=== PATIENT | female | born 1965 | race Hispanic/Latino ===

== ENCOUNTER 2021-04-11 07:37 | Outpatient (CLI) | payer OTHER | END 2021-04-11 07:38 | disposition home or self-care (01) | LOC: CSHCT 07:37 | PROVIDERS: ATTEND Urology | DX: N12 Tubulo-interstitial nephritis, not specified as acute or chronic (principal); N28.9 Disorder of kidney and ureter, unspecified; N13.30 Unspecified hydronephrosis; J90 Pleural effusion, not elsewhere classified; R18.8 Other ascites | CPT/HCPCS: 74176 ==

== ENCOUNTER 2021-08-03 09:23 | Outpatient (CLI) | payer OTHER | END 2021-08-03 09:24 | disposition home or self-care (01) | LOC: CSHCT 09:23 | PROVIDERS: ATTEND Urology | DX: N18.6 End stage renal disease (principal); N28.89 Other specified disorders of kidney and ureter; Z90.5 Acquired absence of kidney; K82.9 Disease of gallbladder, unspecified; R60.1 Generalized edema; I31.3 Pericardial effusion (noninflammatory); R91.1 Solitary pulmonary nodule; K63.9 Disease of intestine, unspecified | CPT/HCPCS: 74178 ==

== ENCOUNTER 2021-08-06 20:46 | Inpatient (IN) | payer SELFPAY ==
[2021-08-06] MEDS ORDERED: Ondansetron PF 4 MG/2 ML Vial ONE (22:33)
[2021-08-06] MEDS ORDERED: Morphine 2 MG/ML VIAL ONE (22:33)
[2021-08-06 22:34] LABS: Bilirubin Neg (Negative); Blood, Urine 150 (Negative); Clarity Clear (Clear); Glucose, Urine (Dipstick) 50 mg/dL (Negative); Ketone, Urine Negative (Negative); Leukocyte 500 (Negative); Nitrite Negative (Negative); Protein, Urine (Dipstick) 100 mg/dl (Neg-Trace); Urobilinogen Normal mg/dL (Less than 2)
[2021-08-06 22:38] LABS: #Eosinphils 0.2 10x3/uL (0.0-0.5); #Monocytes 0.6 10x3/uL (0.0-1.1); #Neutrophils 4.4 10x3/uL (1.5-8.4); %Basophils 0.4 % (0.0-2.0); %Eosinophils 2.3 % (0.0-6.0); %Lymphocytes 28.8 % (18.0-47.0); %Monocytes 8.5 % (0.0-10.0); %Neutrophils 59.7 % (40.0-75.0); Hemoglobin 10.1 g/dL (12.0-15.5); Mean Corpuscular HGB CONC 34.9 g/dL (32.0-36.0); Mean Corpuscular Hemoglobin 27.7 pg (27.0-33.0); Mean Corpuscular Volume 79.2 fl (81.6-98.3); Platelet Count 255 10x3/uL (150-450); RBC Distribution Width 14.4 % (11.5-14.5); Red Blood Cell (RBC) Count 3.65 10x6/uL (3.90-5.03); White Blood Cell (WBC) Count 7.4 10x3/uL (3.5-10.5)
[2021-08-06 22:48] LABS: ALT (SGPT) 18 U/L (8-55); AST (SGOT) 13 U/L (5-34); Albumin 4.3 g/dL (3.5-5.0); Alkaline Phosphatase 68 U/L (40-110); Anion Gap 19 mmol/L (10-20); BUN (Urea Nitrogen) 35 mg/dL (9.8-20.1); Bilirubin, Total 0.5 mg/dL (0.2-1.2); Calc. Creatinine Clearance 0 mL/min (70-130); Calcium 9.5 mg/dL (7.8-10.44); Carbon Dioxide 23 mmol/L (22-29); Chloride 86 mmol/L (98-107); Globulin 4.2 g/dL (2.4-3.5); Glucose 149 mg/dL (70-105); Lipase 35 U/L (8-78); Protein, Total 8.5 g/dL (6.0-8.3); Sodium 123 mmol/L (136-145)
[2021-08-06 22:56] LABS: Bacteria/HPF 1+ HPF (None Seen); Transitional Epithelial 0-3 HPF (None Seen); WBC/HPF Greater Than 50 HPF (0-3)
[2021-08-07] MEDS ORDERED: HumaLOG 300 UNITS/3 ML VIAL SC PRN ×2 (00:28)
[2021-08-07] MEDS ORDERED: Acetaminophen 325 MG TAB PO PRN (00:28)
[2021-08-07] MEDS ORDERED: Dextrose 5% in Water 1,000 ML IV PRN (00:28)
[2021-08-07] MEDS ORDERED: Zolpidem Tartrate 5 MG TAB PO PRN (00:28)
[2021-08-07] MEDS ORDERED: Dextrose 50% Abboject 50 ML SYRINGE SLOW IVP PRN (00:28)
[2021-08-07] MEDS ORDERED: Bisacodyl 5 MG TAB PO PRN (00:28)
[2021-08-07] MEDS ORDERED: cefTRIAXone\\ROCEPHIN 2 GM VIAL ONE (00:32)
[2021-08-07] MEDS ORDERED: hydrALAZINE 20 MG/ML VIAL SLOW IVP PRN (00:49)
[2021-08-07 02:36] VITALS: BMI 22.6
[2021-08-07] MEDS ORDERED: Loratadine 10 MG TAB PO PRN (02:36)
[2021-08-07] MEDS: Heparin 5,000 UNITS/ML VIAL SC SCH ×2 (02:56→15:29)
[2021-08-07] MEDS ORDERED: Furosemide 40 MG/4 ML VIAL SLOW IVP SCH ×2 (03:00→09:00)
[2021-08-07] MEDS ORDERED: Levofloxacin 500 mg/D5W 250 MG in Premix Bag 1 BAG IVPB SCH (03:00)
[2021-08-07] MEDS: HYDROcodone/Acetaminophen 5/325 mg Tablet PO PRN ×2 (03:30→22:03)
[2021-08-07 05:30] LABS: #Eosinphils 0.2 10x3/uL (0.0-0.5); #Monocytes 0.7 10x3/uL (0.0-1.1); #Neutrophils 4.8 10x3/uL (1.5-8.4); %Basophils 0.3 % (0.0-2.0); %Eosinophils 2.4 % (0.0-6.0); %Lymphocytes 22.6 % (18.0-47.0); %Monocytes 9.9 % (0.0-10.0); %Neutrophils 64.5 % (40.0-75.0); Hemoglobin 8.3 g/dL (12.0-15.5); Mean Corpuscular HGB CONC 34.2 g/dL (32.0-36.0); Mean Corpuscular Hemoglobin 27.3 pg (27.0-33.0); Mean Corpuscular Volume 79.9 fl (81.6-98.3); Mean Platelet Volume 7.9 fl (7.4-10.4); Platelet Count 204 10x3/uL (150-450); RBC Distribution Width 14.3 % (11.5-14.5); Red Blood Cell (RBC) Count 3.04 10x6/uL (3.90-5.03); White Blood Cell (WBC) Count 7.4 10x3/uL (3.5-10.5)
[2021-08-07 05:44] LABS: Albumin 3.2 g/dL (3.5-5.0); Anion Gap 17 mmol/L (10-20); BUN (Urea Nitrogen) 35 mg/dL (9.8-20.1); Calc. Creatinine Clearance 15 mL/min (70-130); Calcium 8.3 mg/dL (7.8-10.44); Carbon Dioxide 24 mmol/L (22-29); Chloride 89 mmol/L (98-107); Glucose 109 mg/dL (70-105); Phosphorus 3.5 mg/dL (2.3-4.7); Potassium 5.2 mmol/L (3.5-5.1); Sodium 125 mmol/L (136-145)
[2021-08-07] MEDS: metroNIDAZOLE 500 MG in Premix Bag 1 BAG IVPB SCH ×3 (06:15→21:58)
[2021-08-07] MEDS: Morphine 2 MG/ML VIAL SLOW IVP PRN ×2 (08:48→15:33)
[2021-08-07] MEDS ORDERED: Heparin 10,000 UNITS/ 10 ML VIAL FS PRN (11:05)
[2021-08-07] MEDS ORDERED: EPOETIN ALFA-EPBX (ESRD) 3,000 UNIT/ML VIAL IVP PRN (11:06)
[2021-08-07] MEDS: Lantus 1000 UNITS/10 ML VIAL SC SCH ×2 (15:27→22:03)
[2021-08-07] MEDS: glipiZIDE 5 MG TAB PO SCH (15:27)
[2021-08-07] MEDS: Aspirin 81 mg Enteric Coated Tablet PO SCH (15:28)
[2021-08-07] MEDS: Famotidine 20 MG TAB PO SCH (15:28)
[2021-08-07] MEDS: Amlodipine 5 MG TAB PO SCH (15:28)
[2021-08-07] MEDS: Rosuvastatin 10 MG TAB PO SCH (21:58)
[2021-08-08] MEDS: Heparin 5,000 UNITS/ML VIAL SC SCH ×2 (04:05→15:03)
[2021-08-08 05:42] LABS: #Eosinphils 0.1 10x3/uL (0.0-0.5); #Monocytes 0.6 10x3/uL (0.0-1.1); #Neutrophils 3.5 10x3/uL (1.5-8.4); %Basophils 0.4 % (0.0-2.0); %Lymphocytes 14.2 % (18.0-47.0); %Monocytes 11.9 % (0.0-10.0); %Neutrophils 72.3 % (40.0-75.0); Hemoglobin 9.3 g/dL (12.0-15.5); Mean Corpuscular HGB CONC 34.1 g/dL (32.0-36.0); Mean Corpuscular Hemoglobin 27.7 pg (27.0-33.0); Mean Corpuscular Volume 81.3 fl (81.6-98.3); Mean Platelet Volume 8.1 fl (7.4-10.4); Platelet Count 208 10x3/uL (150-450); RBC Distribution Width 14.5 % (11.5-14.5); Red Blood Cell (RBC) Count 3.36 10x6/uL (3.90-5.03); White Blood Cell (WBC) Count 4.9 10x3/uL (3.5-10.5)
[2021-08-08] MEDS: metroNIDAZOLE 500 MG in Premix Bag 1 BAG IVPB SCH ×3 (05:44→21:39)
[2021-08-08 05:53] LABS: Anion Gap 14 mmol/L (10-20); BUN (Urea Nitrogen) 15 mg/dL (9.8-20.1); Calc. Creatinine Clearance 23 mL/min (70-130); Calcium 8.6 mg/dL (7.8-10.44); Carbon Dioxide 27 mmol/L (22-29); Chloride 99 mmol/L (98-107); Glucose 60 mg/dL (70-105); Potassium 3.5 mmol/L (3.5-5.1); Sodium 136 mmol/L (136-145)
[2021-08-08] MEDS: Aspirin 81 mg Enteric Coated Tablet PO SCH (09:56)
[2021-08-08] MEDS: glipiZIDE 5 MG TAB PO SCH (09:56)
[2021-08-08] MEDS: Famotidine 20 MG TAB PO SCH (09:57)
[2021-08-08] MEDS: Lantus 1000 UNITS/10 ML VIAL SC SCH (09:57)
[2021-08-08] MEDS: Amlodipine 5 MG TAB PO SCH (09:57)
[2021-08-08] MEDS: Rosuvastatin 10 MG TAB PO SCH (20:52)
[2021-08-08] MEDS: Ondansetron PF 4 MG/2 ML Vial IVP PRN (23:08)
[2021-08-08] MEDS: Morphine 2 MG/ML VIAL SLOW IVP PRN (23:09)
[2021-08-09] MEDS: Lantus 1000 UNITS/10 ML VIAL SC SCH (03:38)
[2021-08-09] MEDS: Heparin 5,000 UNITS/ML VIAL SC SCH (03:44)
[2021-08-09] MEDS: metroNIDAZOLE 500 MG in Premix Bag 1 BAG IVPB SCH (05:02)
[2021-08-09 05:27] LABS: #Eosinphils 0.2 10x3/uL (0.0-0.5); #Monocytes 0.6 10x3/uL (0.0-1.1); #Neutrophils 3.5 10x3/uL (1.5-8.4); %Basophils 0.3 % (0.0-2.0); %Eosinophils 2.9 % (0.0-6.0); %Lymphocytes 25.8 % (18.0-47.0); %Monocytes 10.9 % (0.0-10.0); %Neutrophils 59.8 % (40.0-75.0); Hemoglobin 8.8 g/dL (12.0-15.5); Mean Corpuscular HGB CONC 33.6 g/dL (32.0-36.0); Mean Corpuscular Hemoglobin 27.4 pg (27.0-33.0); Mean Corpuscular Volume 81.6 fl (81.6-98.3); Mean Platelet Volume 8.1 fl (7.4-10.4); Platelet Count 214 10x3/uL (150-450); RBC Distribution Width 14.6 % (11.5-14.5); Red Blood Cell (RBC) Count 3.21 10x6/uL (3.90-5.03); White Blood Cell (WBC) Count 5.8 10x3/uL (3.5-10.5)
[2021-08-09 05:59] LABS: Anion Gap 14 mmol/L (10-20); BUN (Urea Nitrogen) 26 mg/dL (9.8-20.1); Calc. Creatinine Clearance 16 mL/min (70-130); Calcium 8.5 mg/dL (7.8-10.44); Carbon Dioxide 26 mmol/L (22-29); Chloride 101 mmol/L (98-107); Glucose 68 mg/dL (70-105); Sodium 137 mmol/L (136-145)
[2021-08-09] MEDS: Amlodipine 5 MG TAB PO SCH (09:36)
[2021-08-09] MEDS: Aspirin 81 mg Enteric Coated Tablet PO SCH (09:36)
[2021-08-09] MEDS: Famotidine 20 MG TAB PO SCH (09:36)
[2021-08-09] MEDS: Ondansetron PF 4 MG/2 ML Vial IVP PRN (09:40)
[2021-08-09] MEDS: glipiZIDE 5 MG TAB PO SCH (10:13)
[2021-08-09 12:19] VITALS: BP 167/87; TEMP 97.9
== END 2021-08-09 16:09 | disposition home or self-care (01) | DRG 391 ==
LOC: CSHERS 20:46 → CSHTELE 08-07 02:22 → OBSVTOIN 08-07 02:23
PROVIDERS: ADMIT Internal Medicine; ATTEND Internal Medicine
PROC: 5A1D70Z Performance of Urinary Filtration, Intermittent, Less than 6 Hours Per Day (ICD-10-PCS; principal; 2021-08-07)
DX: K52.9 Noninfective gastroenteritis and colitis, unspecified (principal); N18.6 End stage renal disease; N39.0 Urinary tract infection, site not specified; E87.1 Hypo-osmolality and hyponatremia; I12.0 Hypertensive chronic kidney disease with stage 5 chronic kidney disease or end stage renal disease; Z20.822 Contact with and (suspected) exposure to COVID-19; N28.89 Other specified disorders of kidney and ureter; E87.5 Hyperkalemia; D63.1 Anemia in chronic kidney disease; K80.20 Calculus of gallbladder without cholecystitis without obstruction; E11.22 Type 2 diabetes mellitus with diabetic chronic kidney disease; Z79.82 Long term (current) use of aspirin; Z99.2 Dependence on renal dialysis; Z90.5 Acquired absence of kidney; Z90.49 Acquired absence of other specified parts of digestive tract; Z79.899 Other long term (current) drug therapy
CPT/HCPCS: 36415; 36416; 76705; 80048; 80053; 80069; 81003; 81015; 83605; 83690; 83930; 83935; 85025; 90935; 93005; 94760; 96374; 96375; G0257; J0696; J1644; J1815; J1940; J1956; J2270; J2405; J7999; U0003; U0005

== ENCOUNTER 2021-08-10 05:36 | Emergency (ER) | payer MEDICAID ==
[2021-08-10] MEDS ORDERED: Morphine 4 MG/ML VIAL ONE (06:44)
[2021-08-10] MEDS ORDERED: Ondansetron PF 4 MG/2 ML Vial ONE (06:45)
[2021-08-10] MEDS ORDERED: Ketorolac Tromethamine 30 MG/ML VIAL ONE (06:45)
[2021-08-10 06:54] LABS: #Eosinphils 0.2 10x3/uL (0.0-0.5); #Monocytes 0.6 10x3/uL (0.0-1.1); #Neutrophils 4.3 10x3/uL (1.5-8.4); %Basophils 0.4 % (0.0-2.0); %Eosinophils 2.6 % (0.0-6.0); %Lymphocytes 24.3 % (18.0-47.0); %Monocytes 8.9 % (0.0-10.0); %Neutrophils 63.5 % (40.0-75.0); Hemoglobin 9.8 g/dL (12.0-15.5); Mean Corpuscular HGB CONC 33.2 g/dL (32.0-36.0); Mean Corpuscular Hemoglobin 27.8 pg (27.0-33.0); Mean Corpuscular Volume 83.8 fl (81.6-98.3); Mean Platelet Volume 8.2 fl (7.4-10.4); Platelet Count 252 10x3/uL (150-450); RBC Distribution Width 14.9 % (11.5-14.5); Red Blood Cell (RBC) Count 3.52 10x6/uL (3.90-5.03); White Blood Cell (WBC) Count 6.8 10x3/uL (3.5-10.5)
[2021-08-10 07:12] LABS: ALT (SGPT) 11 U/L (8-55); AST (SGOT) 9 U/L (5-34); Albumin 3.8 g/dL (3.5-5.0); Alkaline Phosphatase 62 U/L (40-110); Anion Gap 19 mmol/L (10-20); BUN (Urea Nitrogen) 32 mg/dL (9.8-20.1); Bilirubin, Total 0.5 mg/dL (0.2-1.2); Calc. Creatinine Clearance 0 mL/min (70-130); Calcium 9.1 mg/dL (7.8-10.44); Carbon Dioxide 20 mmol/L (22-29); Chloride 99 mmol/L (98-107); Globulin 3.6 g/dL (2.4-3.5); Glucose 117 mg/dL (70-105); Lipase 36 U/L (8-78); Potassium 4.2 mmol/L (3.5-5.1); Protein, Total 7.4 g/dL (6.0-8.3); Sodium 134 mmol/L (136-145)
== END 2021-08-10 08:07 | disposition home or self-care (01) ==
LOC: CSHERS 05:36
DX: R10.9 Unspecified abdominal pain (principal); R11.2 Nausea with vomiting, unspecified; E11.22 Type 2 diabetes mellitus with diabetic chronic kidney disease; I12.0 Hypertensive chronic kidney disease with stage 5 chronic kidney disease or end stage renal disease; N18.6 End stage renal disease; Z99.2 Dependence on renal dialysis; Z79.899 Other long term (current) drug therapy; Z79.84 Long term (current) use of oral hypoglycemic drugs; Z79.82 Long term (current) use of aspirin
CPT/HCPCS: 80053; 83605; 83690; 85025; 96374; 96375; J1885; J2270; J2405

== ENCOUNTER 2021-08-14 14:50 | Inpatient (IN) | payer SELFPAY ==
[2021-08-14] MEDS ORDERED: Ondansetron PF 4 MG/2 ML Vial ONE (16:06)
[2021-08-14] MEDS ORDERED: Morphine 4 MG/ML VIAL ONE (16:06)
[2021-08-14 16:09] LABS: Bilirubin Neg (Negative); Blood, Urine 150 (Negative); Clarity Slightly Cloudy (Clear); Glucose, Urine (Dipstick) 100 mg/dL (Negative); Ketone, Urine Negative (Negative); Leukocyte 500 (Negative); Nitrite Negative (Negative); Protein, Urine (Dipstick) 100 mg/dl (Neg-Trace); Specific Gravity, Urine 1.005 (1.002-1.036); Urobilinogen Normal mg/dL (Less than 2)
[2021-08-14 16:38] LABS: #Eosinphils 0.2 10x3/uL (0.0-0.5); #Monocytes 0.5 10x3/uL (0.0-1.1); #Neutrophils 3.6 10x3/uL (1.5-8.4); %Basophils 0.4 % (0.0-2.0); %Eosinophils 2.7 % (0.0-6.0); %Lymphocytes 23.5 % (18.0-47.0); %Monocytes 9.6 % (0.0-10.0); %Neutrophils 63.4 % (40.0-75.0); Hemoglobin 9.5 g/dL (12.0-15.5); Mean Corpuscular HGB CONC 33.3 g/dL (32.0-36.0); Mean Corpuscular Hemoglobin 27.9 pg (27.0-33.0); Mean Corpuscular Volume 83.6 fl (81.6-98.3); Mean Platelet Volume 8.1 fl (7.4-10.4); Platelet Count 281 10x3/uL (150-450); Red Blood Cell (RBC) Count 3.41 10x6/uL (3.90-5.03); White Blood Cell (WBC) Count 5.7 10x3/uL (3.5-10.5)
[2021-08-14 16:42] LABS: Squamous Epithelial 0-3 HPF (0-3); Transitional Epithelial 0-3 HPF (None Seen); WBC/HPF 21-50 HPF (0-3)
[2021-08-14 16:44] LABS: Bacteria/HPF 2+ HPF (None Seen); Mucous/LPF Rare LPF (<2+)
[2021-08-14 16:45] LABS: ALT (SGPT) 19 U/L (8-55); AST (SGOT) 15 U/L (5-34); Albumin 3.9 g/dL (3.5-5.0); Alkaline Phosphatase 81 U/L (40-110); Anion Gap 20 mmol/L (10-20); BUN (Urea Nitrogen) 65 mg/dL (9.8-20.1); Bilirubin, Total 0.4 mg/dL (0.2-1.2); Calc. Creatinine Clearance 0 mL/min (70-130); Carbon Dioxide 20 mmol/L (22-29); Chloride 98 mmol/L (98-107); Globulin 4.1 g/dL (2.4-3.5); Glucose 226 mg/dL (70-105); Lipase 33 U/L (8-78); Sodium 131 mmol/L (136-145)
[2021-08-14 16:47] LABS: Potassium 6.9 mmol/L (3.5-5.1)
[2021-08-14] MEDS ORDERED: Guaifenesin DM 100-10/5 ML UDCUP PO PRN (18:17)
[2021-08-14] MEDS ORDERED: Acetaminophen 325 MG TAB PO PRN (18:17)
[2021-08-14] MEDS ORDERED: Ondansetron ODT 4 MG TAB PO PRN (18:17)
[2021-08-14] MEDS ORDERED: Dextrose 50% Abboject 50 ML SYRINGE SLOW IVP PRN (18:21)
[2021-08-14] MEDS ORDERED: Dextrose 5% in Water 1,000 ML IV PRN (18:21)
[2021-08-14] MEDS ORDERED: Calcium Chloride 1 GM/10 ML Abboject SYRINGE ONE (18:37)
[2021-08-14] MEDS ORDERED: Sodium Bicarb 50 MEQ/50 ML VIAL ONE ×3 (18:37→18:38)
[2021-08-14] MEDS ORDERED: Dextrose 50% Abboject 50 ML SYRINGE ONE (18:38)
[2021-08-14] MEDS ORDERED: Insulin Regular 300 UNITS/3 ML VIAL ONE (18:39)
[2021-08-14] MEDS ORDERED: Albuterol Sulfate 2.5 mg/3 ml Neb ONE (19:39)
[2021-08-14] MEDS ORDERED: EPOETIN ALFA-EPBX (ESRD) 10,000 UNIT/ML VIAL IVP PRN (19:50)
[2021-08-14 20:24] LABS: HBSAg Index 0.22 S/CO (0-0.99); Hep B Surf Ag Non-Reactive S/CO (NonReactive)
[2021-08-14 20:33] LABS: Anion Gap 19 mmol/L (10-20); BUN (Urea Nitrogen) 65 mg/dL (9.8-20.1); BUN/Creatinine Ratio 12.52; Calc. Creatinine Clearance 0 mL/min (70-130); Calcium 9.2 mg/dL (7.8-10.44); Carbon Dioxide 20 mmol/L (22-29); Chloride 96 mmol/L (98-107); Glucose 223 mg/dL (70-105); Phosphorus 5.2 mg/dL (2.3-4.7); Sodium 128 mmol/L (136-145)
[2021-08-14 20:40] LABS: Potassium 6.9 mmol/L (3.5-5.1)
[2021-08-14] MEDS ORDERED: Lantus 1000 UNITS/10 ML VIAL SC SCH (21:00)
[2021-08-15] MEDS: Famotidine 20 MG TAB PO SCH ×2 (00:43→21:08)
[2021-08-15 01:30] VITALS: BMI 18.6
[2021-08-15] MEDS ORDERED: Prevnar 13-Val Conj/PF 0.5 ML SYRINGE IM ONE (02:00)
[2021-08-15] MEDS: HYDROcodone/Acetaminophen 5/325 mg Tablet PO PRN ×4 (03:55→18:05)
[2021-08-15 04:13] LABS: SARS-CoV-2 NAA Rapid Test Not Detected (NotDetected)
[2021-08-15 05:24] LABS: #Eosinphils 0.1 10x3/uL (0.0-0.5); #Monocytes 0.5 10x3/uL (0.0-1.1); #Neutrophils 3.8 10x3/uL (1.5-8.4); %Basophils 0.6 % (0.0-2.0); %Eosinophils 1.3 % (0.0-6.0); %Lymphocytes 17.6 % (18.0-47.0); %Monocytes 9.5 % (0.0-10.0); %Neutrophils 70.4 % (40.0-75.0); Hemoglobin 8.1 g/dL (12.0-15.5); Mean Corpuscular HGB CONC 32.4 g/dL (32.0-36.0); Mean Corpuscular Hemoglobin 27.1 pg (27.0-33.0); Mean Corpuscular Volume 83.6 fl (81.6-98.3); Mean Platelet Volume 8.2 fl (7.4-10.4); Platelet Count 271 10x3/uL (150-450); RBC Distribution Width 14.6 % (11.5-14.5); Red Blood Cell (RBC) Count 2.99 10x6/uL (3.90-5.03); White Blood Cell (WBC) Count 5.4 10x3/uL (3.5-10.5)
[2021-08-15 05:49] LABS: Anion Gap 16 mmol/L (10-20); BUN (Urea Nitrogen) 23 mg/dL (9.8-20.1); Calc. Creatinine Clearance 20 mL/min (70-130); Calcium 8.7 mg/dL (7.8-10.44); Carbon Dioxide 27 mmol/L (22-29); Chloride 99 mmol/L (98-107); Glucose 236 mg/dL (70-105); Potassium 4.9 mmol/L (3.5-5.1); Sodium 137 mmol/L (136-145)
[2021-08-15] MEDS: Insulin Regular 300 UNITS/3 ML VIAL SC PRN ×3 (05:52→16:20)
[2021-08-15] MEDS ORDERED: Bisacodyl 10 MG SUPP PR PRN (06:53)
[2021-08-15] MEDS ORDERED: glipiZIDE 5 MG TAB PO SCH (07:30)
[2021-08-15] MEDS ORDERED: Enoxaparin Sodium 30 MG/0.3 ML SYRINGE SC SCH (09:00)
[2021-08-15] MEDS: Amlodipine 5 MG TAB PO SCH (09:52)
[2021-08-15] MEDS: Docusate 100 MG CAP PO SCH ×2 (09:53→21:08)
[2021-08-15] MEDS: Aspirin 81 mg Enteric Coated Tablet PO SCH (09:53)
[2021-08-15] MEDS: Heparin 5,000 UNITS/ML VIAL SC SCH ×3 (09:54→21:05)
[2021-08-15] MEDS: Methocarbamol 500 MG TAB PO SCH ×3 (09:54→21:07)
[2021-08-15] MEDS ORDERED: Morphine 2 MG/ML VIAL SLOW IVP PRN (10:13)
[2021-08-15] MEDS ORDERED: Lantus 1000 UNITS/10 ML VIAL SC SCH ×3 (10:13→21:00)
[2021-08-15] MEDS ORDERED: hydrALAZINE 20 MG/ML VIAL SLOW IVP PRN (10:15)
[2021-08-15] MEDS ORDERED: Artificial Tear Sol 15 ML BOT EA EYE PRN (10:15)
[2021-08-15] MEDS ORDERED: Senokot S 8.6-50 MG TAB PO PRN (10:15)
[2021-08-15] MEDS ORDERED: Moisturizing Cream (Eucerin) 113 GM JAR TOP PRN (10:15)
[2021-08-15] MEDS ORDERED: Labetalol HCl 100 MG/20 ML VIAL SLOW IVP PRN (10:15)
[2021-08-15] MEDS ORDERED: Polyethylene Glycol 3350 17 GM Packet PO SCH (10:30)
[2021-08-15] MEDS ORDERED: Cefepime 1 GM in Sodium Chloride 0.9% 100 ML IVPB SCH (10:30)
[2021-08-15 14:46] LABS: Hemoglobin A1c 6.6 % (4.0-6.0)
[2021-08-15 15:55] LABS: Bilirubin Neg (Negative); Blood, Urine 150 (Negative); Clarity Slightly Cloudy (Clear); Glucose, Urine (Dipstick) 250 mg/dL (Negative); Ketone, Urine Negative (Negative); Leukocyte 500 (Negative); Nitrite Negative (Negative); Protein, Urine (Dipstick) 100 mg/dl (Neg-Trace); Urobilinogen Normal mg/dL (Less than 2)
[2021-08-15 16:13] LABS: WBC/HPF 21-50 HPF (0-3)
[2021-08-15 16:14] LABS: Bacteria/HPF 2+ HPF (None Seen); Mucous/LPF Rare LPF (<2+); Squamous Epithelial 0-3 HPF (0-3)
[2021-08-15] MEDS: DULoxetine 30 MG CAP PO SCH (21:07)
[2021-08-15] MEDS: Rosuvastatin 10 MG TAB PO SCH (21:09)
[2021-08-15] MEDS: Estrogens, Conjugated 30 GM TUBE VAG SCH (21:16)
[2021-08-16] MEDS: HYDROcodone/Acetaminophen 5/325 mg Tablet PO PRN ×5 (04:40→20:46)
[2021-08-16] MEDS: Ondansetron PF 4 MG/2 ML Vial IVP PRN ×2 (04:51→20:46)
[2021-08-16 05:29] LABS: #Eosinphils 0.1 10x3/uL (0.0-0.5); #Monocytes 0.5 10x3/uL (0.0-1.1); #Neutrophils 2.8 10x3/uL (1.5-8.4); %Basophils 0.9 % (0.0-2.0); %Eosinophils 3.1 % (0.0-6.0); %Lymphocytes 22.5 % (18.0-47.0); %Monocytes 11.5 % (0.0-10.0); %Neutrophils 61.6 % (40.0-75.0); Hemoglobin 9.3 g/dL (12.0-15.5); Mean Corpuscular HGB CONC 32.4 g/dL (32.0-36.0); Mean Corpuscular Hemoglobin 27.7 pg (27.0-33.0); Mean Corpuscular Volume 85.4 fl (81.6-98.3); Mean Platelet Volume 8.2 fl (7.4-10.4); Platelet Count 351 10x3/uL (150-450); RBC Distribution Width 14.8 % (11.5-14.5); Red Blood Cell (RBC) Count 3.36 10x6/uL (3.90-5.03); White Blood Cell (WBC) Count 4.5 10x3/uL (3.5-10.5)
[2021-08-16 05:35] LABS: Anion Gap 18 mmol/L (10-20); BUN (Urea Nitrogen) 28 mg/dL (9.8-20.1); Calc. Creatinine Clearance 15 mL/min (70-130); Carbon Dioxide 23 mmol/L (22-29); Chloride 102 mmol/L (98-107); Glucose 137 mg/dL (70-105); Potassium 6.1 mmol/L (3.5-5.1); Sodium 137 mmol/L (136-145)
[2021-08-16] MEDS: Polyethylene Glycol 3350 17 GM Packet PO SCH (09:33)
[2021-08-16] MEDS: Amlodipine 5 MG TAB PO SCH (09:34)
[2021-08-16] MEDS: Docusate 100 MG CAP PO SCH ×2 (09:35→20:48)
[2021-08-16] MEDS: Aspirin 81 mg Enteric Coated Tablet PO SCH (09:35)
[2021-08-16] MEDS: Methocarbamol 500 MG TAB PO SCH ×3 (09:35→20:47)
[2021-08-16] MEDS ORDERED: Morphine 2 MG/ML VIAL SLOW IVP PRN (09:36)
[2021-08-16] MEDS ORDERED: Lantus 1000 UNITS/10 ML VIAL SC SCH (09:42)
[2021-08-16] MEDS ORDERED: EPOETIN ALFA-EPBX (ESRD) 40,000 UNIT/ML VIAL SC SCH (09:45)
[2021-08-16] MEDS: Lactated Ringer's 1,000 ML IV SCH (09:48)
[2021-08-16] MEDS: Heparin 5,000 UNITS/ML VIAL SC SCH ×3 (10:08→20:48)
[2021-08-16] MEDS ORDERED: Heparin 10,000 UNITS/ 10 ML VIAL FS PRN (10:26)
[2021-08-16] MEDS ORDERED: Cefepime 0.5 GM in Admixture Fee 1 EACH IVPB SCH (10:45)
[2021-08-16] MEDS ORDERED: Cefepime 0.5 GM, Admixture Fee 1 EACH in Sodium Chloride 0.9% 50 ML IVPB SCH (17:30)
[2021-08-16] MEDS ORDERED: Cefepime 0.5 GM, Admixture Fee 1 EACH in Sodium Chloride 0.9% 100 ML IVPB SCH (17:30)
[2021-08-16] MEDS: Estrogens, Conjugated 30 GM TUBE VAG SCH (20:45)
[2021-08-16] MEDS: DULoxetine 30 MG CAP PO SCH (20:46)
[2021-08-16] MEDS: Famotidine 20 MG TAB PO SCH (20:46)
[2021-08-16] MEDS: Rosuvastatin 10 MG TAB PO SCH (20:47)
[2021-08-17 05:34] LABS: #Eosinphils 0.1 10x3/uL (0.0-0.5); #Monocytes 0.6 10x3/uL (0.0-1.1); #Neutrophils 2.7 10x3/uL (1.5-8.4); %Basophils 0.6 % (0.0-2.0); %Eosinophils 2.9 % (0.0-6.0); %Lymphocytes 27.7 % (18.0-47.0); %Monocytes 12.5 % (0.0-10.0); %Neutrophils 56.1 % (40.0-75.0); Mean Corpuscular HGB CONC 32.8 g/dL (32.0-36.0); Mean Corpuscular Hemoglobin 27.8 pg (27.0-33.0); Mean Corpuscular Volume 84.6 fl (81.6-98.3); Mean Platelet Volume 8.3 fl (7.4-10.4); Platelet Count 263 10x3/uL (150-450); RBC Distribution Width 14.2 % (11.5-14.5); Red Blood Cell (RBC) Count 3.24 10x6/uL (3.90-5.03); White Blood Cell (WBC) Count 4.8 10x3/uL (3.5-10.5)
[2021-08-17 05:57] LABS: Anion Gap 14 mmol/L (10-20); BUN (Urea Nitrogen) 14 mg/dL (9.8-20.1); Calc. Creatinine Clearance 23 mL/min (70-130); Calcium 8.8 mg/dL (7.8-10.44); Carbon Dioxide 28 mmol/L (22-29); Chloride 99 mmol/L (98-107); Glucose 94 mg/dL (70-105); Potassium 5.5 mmol/L (3.5-5.1); Sodium 135 mmol/L (136-145)
[2021-08-17] MEDS: Lactated Ringer's 1,000 ML IV SCH (06:29)
[2021-08-17] MEDS ORDERED: Sodium Chloride 0.9% 1,000 ML IV SCH (09:30)
[2021-08-17] MEDS: HYDROcodone/Acetaminophen 5/325 mg Tablet PO PRN (10:22)
[2021-08-17] MEDS: Aspirin 81 mg Enteric Coated Tablet PO SCH (10:22)
[2021-08-17] MEDS: Docusate 100 MG CAP PO SCH (10:23)
[2021-08-17] MEDS: Heparin 5,000 UNITS/ML VIAL SC SCH (10:23)
[2021-08-17] MEDS: Methocarbamol 500 MG TAB PO SCH (10:23)
[2021-08-17] MEDS: Amlodipine 5 MG TAB PO SCH (10:23)
[2021-08-17] MEDS: Polyethylene Glycol 3350 17 GM Packet PO SCH (10:24)
[2021-08-17 12:03] VITALS: BP 136/63; TEMP 98.4
[2021-08-17] MEDS ORDERED: Cefepime 0.5 GM, Admixture Fee 1 EACH in Sodium Chloride 0.9% 50 ML IVPB SCH (15:00)
== END 2021-08-17 14:58 | disposition home health service (06) | DRG 391 ==
LOC: CSHERS 14:50 → CSHTELE 08-15 00:03
PROVIDERS: ADMIT Internal Medicine; ATTEND Family Medicine
PROC: 0T9B70Z Drainage of Bladder with Drainage Device, Via Natural or Artificial Opening (ICD-10-PCS; principal; 2021-08-16)
PROC: 5A1D70Z Performance of Urinary Filtration, Intermittent, Less than 6 Hours Per Day (ICD-10-PCS; 2021-08-16)
DX: K59.00 Constipation, unspecified (principal); N18.6 End stage renal disease; E87.1 Hypo-osmolality and hyponatremia; I12.0 Hypertensive chronic kidney disease with stage 5 chronic kidney disease or end stage renal disease; R33.9 Retention of urine, unspecified; E11.22 Type 2 diabetes mellitus with diabetic chronic kidney disease; E87.5 Hyperkalemia; F32.A Depression, unspecified; D50.9 Iron deficiency anemia, unspecified; N28.89 Other specified disorders of kidney and ureter; Z20.822 Contact with and (suspected) exposure to COVID-19; Z79.82 Long term (current) use of aspirin; Z79.899 Other long term (current) drug therapy; Z99.2 Dependence on renal dialysis; Z98.890 Other specified postprocedural states
CPT/HCPCS: 36415; 36416; 74176; 80048; 80053; 81001; 81003; 81015; 83036; 83690; 85025; 87086; 87340; 90935; 93005; 96374; 96375; G0257; J0692; J1644; J1815; J2270; J2405; J3490; J7120; J7611; J7999; U0002

== ENCOUNTER 2021-09-06 15:23 | Inpatient (IN) | payer SELFPAY ==
[2021-09-06 16:07] LABS: #Eosinphils 0.1 10x3/uL (0.0-0.5); #Monocytes 0.6 10x3/uL (0.0-1.1); #Neutrophils 2.6 10x3/uL (1.5-8.4); %Basophils 0.6 % (0.0-2.0); %Eosinophils 1.9 % (0.0-6.0); %Lymphocytes 29.2 % (18.0-47.0); %Monocytes 12.7 % (0.0-10.0); %Neutrophils 55.4 % (40.0-75.0); Hemoglobin 9.4 g/dL (12.0-15.5); Mean Corpuscular HGB CONC 32.2 g/dL (32.0-36.0); Mean Corpuscular Hemoglobin 27.9 pg (27.0-33.0); Mean Corpuscular Volume 86.6 fl (81.6-98.3); Mean Platelet Volume 8.1 fl (7.4-10.4); Platelet Count 287 10x3/uL (150-450); RBC Distribution Width 14.1 % (11.5-14.5); Red Blood Cell (RBC) Count 3.37 10x6/uL (3.90-5.03); White Blood Cell (WBC) Count 4.7 10x3/uL (3.5-10.5)
[2021-09-06 16:10] LABS: ALT (SGPT) 17 U/L (8-55); AST (SGOT) 15 U/L (5-34); Albumin 4.1 g/dL (3.5-5.0); Alkaline Phosphatase 58 U/L (40-110); Anion Gap 18 mmol/L (10-20); BUN (Urea Nitrogen) 26 mg/dL (9.8-20.1); Bilirubin, Total 0.7 mg/dL (0.2-1.2); CK (CPK) 48 U/L (29-168); Calc. Creatinine Clearance 0 mL/min (70-130); Calcium 9.5 mg/dL (7.8-10.44); Carbon Dioxide 28 mmol/L (22-29); Chloride 88 mmol/L (98-107); Estimated GFR 20; Globulin 3.6 g/dL (2.4-3.5); Glucose 158 mg/dL (70-105); Potassium 4.4 mmol/L (3.5-5.1); Protein, Total 7.7 g/dL (6.0-8.3); Sodium 130 mmol/L (136-145)
[2021-09-06 16:45] LABS: Bilirubin 3+ (Negative); Blood, Urine 150 (Negative); Clarity Clear (Clear); Glucose, Urine (Dipstick) Normal (Negative); Ketone, Urine Negative (Negative); Leukocyte 500 (Negative); Nitrite Positive (Negative); Protein, Urine (Dipstick) 100 mg/dl (Neg-Trace)
[2021-09-06] MEDS ORDERED: Morphine 4 MG/ML VIAL ONE (17:01)
[2021-09-06 17:20] LABS: WBC/HPF 21-50 HPF (0-3)
[2021-09-06 17:21] LABS: Bacteria/HPF 2+ HPF (None Seen); Transitional Epithelial 0-3 HPF (None Seen)
[2021-09-06] MEDS ORDERED: cefTRIAXone\\ROCEPHIN 1 GM VIAL ONE (17:22)
[2021-09-06 17:32] LABS: CKMB 2.1 ng/mL (0-6.6)
[2021-09-06 18:17] LABS: SARS-CoV-2 NAA Rapid Test Not Detected (NotDetected)
[2021-09-06] MEDS ORDERED: Aspirin 325 MG TAB ONE (20:44)
[2021-09-06 23:20] VITALS: BMI 20.6
[2021-09-07] MEDS ORDERED: Promethazine 25 MG TAB PO PRN (02:49)
[2021-09-07] MEDS: HYDROcodone/Acetaminophen 5/325 mg Tablet PO PRN ×2 (03:12→21:44)
[2021-09-07] MEDS: Ondansetron ODT 4 MG TAB PO PRN (03:16)
[2021-09-07 05:19] LABS: #Eosinphils 0.2 10x3/uL (0.0-0.5); #Monocytes 0.7 10x3/uL (0.0-1.1); #Neutrophils 3.8 10x3/uL (1.5-8.4); %Basophils 0.6 % (0.0-2.0); %Eosinophils 3.4 % (0.0-6.0); %Lymphocytes 22.9 % (18.0-47.0); %Monocytes 10.9 % (0.0-10.0); %Neutrophils 61.9 % (40.0-75.0); Hemoglobin 7.8 g/dL (12.0-15.5); Mean Corpuscular HGB CONC 32.2 g/dL (32.0-36.0); Mean Corpuscular Hemoglobin 27.4 pg (27.0-33.0); Mean Corpuscular Volume 84.9 fl (81.6-98.3); Mean Platelet Volume 8.2 fl (7.4-10.4); Platelet Count 247 10x3/uL (150-450); Red Blood Cell (RBC) Count 2.85 10x6/uL (3.90-5.03); White Blood Cell (WBC) Count 6.2 10x3/uL (3.5-10.5)
[2021-09-07 05:24] LABS: Anion Gap 14 mmol/L (10-20); BUN (Urea Nitrogen) 26 mg/dL (9.8-20.1); Calc. Creatinine Clearance 20 mL/min (70-130); Calcium 8.5 mg/dL (7.8-10.44); Carbon Dioxide 31 mmol/L (22-29); Chloride 93 mmol/L (98-107); Estimated GFR 19; Glucose 97 mg/dL (70-105); Magnesium 2.7 mg/dL (1.6-2.6); Potassium 3.9 mmol/L (3.5-5.1); Sodium 134 mmol/L (136-145)
[2021-09-07] MEDS ORDERED: cefTRIAXone Sodium 1,000 MG in Syringe 0 ML IVPB SCH (06:00)
[2021-09-07] MEDS: Heparin 5,000 UNITS/ML VIAL SC SCH ×3 (09:03→21:44)
[2021-09-07] MEDS: Aspirin 81 mg Enteric Coated Tablet PO SCH (09:03)
[2021-09-07] MEDS: Amlodipine 5 MG TAB PO SCH (09:04)
[2021-09-07] MEDS: Docusate 100 MG CAP PO SCH ×2 (09:04→21:44)
[2021-09-07] MEDS: glipiZIDE 5 MG TAB PO SCH (16:27)
[2021-09-07] MEDS: cefTRIAXone\\ROCEPHIN 1 GM in Sodium Chloride 0.9% 100 ML IVPB SCH (17:58)
[2021-09-07] MEDS: Rosuvastatin 10 MG TAB PO SCH (21:44)
[2021-09-07] MEDS: DULoxetine 30 MG CAP PO SCH (21:44)
[2021-09-08] MEDS: HYDROcodone/Acetaminophen 5/325 mg Tablet PO PRN ×2 (06:40→21:56)
[2021-09-08] MEDS: glipiZIDE 5 MG TAB PO SCH ×2 (06:41→12:44)
[2021-09-08] MEDS ORDERED: EPOETIN ALFA-EPBX (ESRD) 4,000 UNIT/ML VIAL IVP SCH (09:45)
[2021-09-08] MEDS ORDERED: Heparin 10,000 UNITS/ 10 ML VIAL FS SCH (09:45)
[2021-09-08] MEDS: Amlodipine 5 MG TAB PO SCH (12:43)
[2021-09-08] MEDS: Docusate 100 MG CAP PO SCH ×2 (12:43→21:50)
[2021-09-08] MEDS: Aspirin 81 mg Enteric Coated Tablet PO SCH (12:44)
[2021-09-08] MEDS: Heparin 5,000 UNITS/ML VIAL SC SCH ×3 (12:45→21:51)
[2021-09-08] MEDS: cefTRIAXone\\ROCEPHIN 1 GM in Sodium Chloride 0.9% 100 ML IVPB SCH (18:27)
[2021-09-08] MEDS: Ondansetron ODT 4 MG TAB PO PRN (18:33)
[2021-09-08] MEDS: Rosuvastatin 10 MG TAB PO SCH (21:50)
[2021-09-08] MEDS: DULoxetine 30 MG CAP PO SCH (21:50)
[2021-09-09] MEDS: Heparin 5,000 UNITS/ML VIAL SC SCH ×3 (06:37→22:11)
[2021-09-09] MEDS: Amlodipine 5 MG TAB PO SCH (08:38)
[2021-09-09] MEDS: Aspirin 81 mg Enteric Coated Tablet PO SCH (08:38)
[2021-09-09] MEDS: Docusate 100 MG CAP PO SCH ×2 (08:38→20:53)
[2021-09-09] MEDS: glipiZIDE 5 MG TAB PO SCH (08:39)
[2021-09-09 11:45] LABS: Hemoglobin 9.1 g/dL (12.0-15.5)
[2021-09-09] MEDS: Acetaminophen 325 MG TAB PO PRN (13:42)
[2021-09-09] MEDS: Ondansetron PF 4 MG/2 ML Vial IVP PRN (16:02)
[2021-09-09] MEDS: HYDROcodone/Acetaminophen 5/325 mg Tablet PO PRN (16:02)
[2021-09-09] MEDS: cefTRIAXone\\ROCEPHIN 1 GM in Sodium Chloride 0.9% 100 ML IVPB SCH (17:43)
[2021-09-09] MEDS: Rosuvastatin 10 MG TAB PO SCH (20:53)
[2021-09-09] MEDS: DULoxetine 30 MG CAP PO SCH (20:53)
[2021-09-10] MEDS: HYDROcodone/Acetaminophen 5/325 mg Tablet PO PRN ×2 (04:27→09:49)
[2021-09-10] MEDS: Heparin 5,000 UNITS/ML VIAL SC SCH ×3 (06:06→21:51)
[2021-09-10] MEDS: glipiZIDE 5 MG TAB PO SCH (08:36)
[2021-09-10] MEDS: Amlodipine 5 MG TAB PO SCH (08:36)
[2021-09-10] MEDS: Aspirin 81 mg Enteric Coated Tablet PO SCH (08:36)
[2021-09-10] MEDS: Docusate 100 MG CAP PO SCH ×2 (08:36→21:21)
[2021-09-10] MEDS: Ondansetron PF 4 MG/2 ML Vial IVP PRN (09:49)
[2021-09-10] MEDS ORDERED: Morphine 2 MG/ML VIAL SLOW IVP PRN (11:01)
[2021-09-10] MEDS ORDERED: Morphine 4 MG/ML VIAL SLOW IVP SCH (11:15)
[2021-09-10 17:06] LABS: Bilirubin Neg (Negative); Blood, Urine 50 (Negative); Clarity Clear (Clear); Glucose, Urine (Dipstick) Normal (Negative); Ketone, Urine Negative (Negative); Leukocyte 500 (Negative); Nitrite Negative (Negative); Protein, Urine (Dipstick) 100 mg/dl (Neg-Trace); Urobilinogen Normal mg/dL (Less than 2)
[2021-09-10 17:08] LABS: Urine Culture Reflex No No
[2021-09-10] MEDS: cefTRIAXone\\ROCEPHIN 1 GM in Sodium Chloride 0.9% 100 ML IVPB SCH (17:11)
[2021-09-10 17:22] LABS: RBC/HPF 0-3 HPF (0-3); WBC/HPF 21-50 HPF (0-3)
[2021-09-10 17:23] LABS: Bacteria/HPF 1+ HPF (None Seen); Squamous Epithelial 0-3 HPF (0-3)
[2021-09-10] MEDS ORDERED: Mineral Oil ENEMA PR SCH (20:00)
[2021-09-10] MEDS: Bisacodyl 10 MG SUPP PR SCH (21:21)
[2021-09-10] MEDS: Rosuvastatin 10 MG TAB PO SCH (21:21)
[2021-09-10] MEDS: DULoxetine 30 MG CAP PO SCH (21:21)
[2021-09-10] MEDS: Polyethylene Glycol 3350 17 GM Packet PO SCH (21:21)
[2021-09-11 04:35] LABS: Anion Gap 15 mmol/L (10-20); BUN (Urea Nitrogen) 35 mg/dL (9.8-20.1); Calc. Creatinine Clearance 15 mL/min (70-130); Calcium 9.1 mg/dL (7.8-10.44); Carbon Dioxide 27 mmol/L (22-29); Chloride 98 mmol/L (98-107); Estimated GFR 15; Glucose 157 mg/dL (70-105); Sodium 135 mmol/L (136-145)
[2021-09-11 04:56] LABS: #Eosinphils 0.2 10x3/uL (0.0-0.5); #Monocytes 0.4 10x3/uL (0.0-1.1); #Neutrophils 3.5 10x3/uL (1.5-8.4); %Basophils 0.6 % (0.0-2.0); %Eosinophils 3.9 % (0.0-6.0); %Lymphocytes 19.5 % (18.0-47.0); %Monocytes 7.4 % (0.0-10.0); %Neutrophils 68.4 % (40.0-75.0); Hemoglobin 8.3 g/dL (12.0-15.5); Mean Corpuscular HGB CONC 32.8 g/dL (32.0-36.0); Mean Corpuscular Hemoglobin 28.3 pg (27.0-33.0); Mean Corpuscular Volume 86.3 fl (81.6-98.3); Mean Platelet Volume 8.3 fl (7.4-10.4); Platelet Count 313 10x3/uL (150-450); RBC Distribution Width 14.4 % (11.5-14.5); Red Blood Cell (RBC) Count 2.93 10x6/uL (3.90-5.03); White Blood Cell (WBC) Count 5.2 10x3/uL (3.5-10.5)
[2021-09-11] MEDS: Acetaminophen 325 MG TAB PO PRN ×3 (05:29→21:29)
[2021-09-11] MEDS: Heparin 5,000 UNITS/ML VIAL SC SCH ×3 (05:32→21:28)
[2021-09-11] MEDS: Amlodipine 5 MG TAB PO SCH (12:38)
[2021-09-11] MEDS: Aspirin 81 mg Enteric Coated Tablet PO SCH (12:38)
[2021-09-11] MEDS: Polyethylene Glycol 3350 17 GM Packet PO SCH ×2 (12:39→21:29)
[2021-09-11] MEDS: Docusate 100 MG CAP PO SCH ×2 (12:39→21:29)
[2021-09-11] MEDS: Bisacodyl 10 MG SUPP PR SCH ×2 (12:39→21:29)
[2021-09-11] MEDS: glipiZIDE 5 MG TAB PO SCH (12:39)
[2021-09-11] MEDS: cefTRIAXone\\ROCEPHIN 1 GM in Sodium Chloride 0.9% 100 ML IVPB SCH (17:04)
[2021-09-11] MEDS: Ondansetron PF 4 MG/2 ML Vial IVP PRN ×2 (17:09→22:55)
[2021-09-11] MEDS: DULoxetine 30 MG CAP PO SCH (21:29)
[2021-09-11] MEDS: Rosuvastatin 10 MG TAB PO SCH (21:29)
[2021-09-12 04:39] LABS: Anion Gap 13 mmol/L (10-20); BUN (Urea Nitrogen) 21 mg/dL (9.8-20.1); Calc. Creatinine Clearance 24 mL/min (70-130); Carbon Dioxide 27 mmol/L (22-29); Chloride 99 mmol/L (98-107); Estimated GFR 26; Glucose 155 mg/dL (70-105); Potassium 4.2 mmol/L (3.5-5.1); Sodium 135 mmol/L (136-145)
[2021-09-12 04:51] LABS: #Eosinphils 0.2 10x3/uL (0.0-0.5); #Monocytes 0.5 10x3/uL (0.0-1.1); %Basophils 0.8 % (0.0-2.0); %Eosinophils 3.5 % (0.0-6.0); %Monocytes 10.1 % (0.0-10.0); %Neutrophils 58.4 % (40.0-75.0); Hemoglobin 8.8 g/dL (12.0-15.5); Mean Corpuscular HGB CONC 32.1 g/dL (32.0-36.0); Mean Corpuscular Hemoglobin 28.1 pg (27.0-33.0); Mean Corpuscular Volume 87.5 fl (81.6-98.3); Mean Platelet Volume 8.1 fl (7.4-10.4); Platelet Count 303 10x3/uL (150-450); RBC Distribution Width 14.5 % (11.5-14.5); Red Blood Cell (RBC) Count 3.13 10x6/uL (3.90-5.03); White Blood Cell (WBC) Count 5.1 10x3/uL (3.5-10.5)
[2021-09-12] MEDS: Heparin 5,000 UNITS/ML VIAL SC SCH ×3 (06:07→21:13)
[2021-09-12] MEDS: glipiZIDE 5 MG TAB PO SCH (08:29)
[2021-09-12] MEDS: Amlodipine 5 MG TAB PO SCH (08:29)
[2021-09-12] MEDS: Aspirin 81 mg Enteric Coated Tablet PO SCH (08:34)
[2021-09-12] MEDS: Docusate 100 MG CAP PO SCH ×2 (08:34→20:43)
[2021-09-12] MEDS: Polyethylene Glycol 3350 17 GM Packet PO SCH ×2 (08:34→20:44)
[2021-09-12] MEDS: Bisacodyl 10 MG SUPP PR SCH ×2 (08:34→20:44)
[2021-09-12] MEDS ORDERED: Magnesium Citrate 300 ML BOT PO SCH (11:00)
[2021-09-12] MEDS: Acetaminophen 325 MG TAB PO PRN (17:47)
[2021-09-12] MEDS: cefTRIAXone\\ROCEPHIN 1 GM in Sodium Chloride 0.9% 100 ML IVPB SCH (17:51)
[2021-09-12] MEDS: Rosuvastatin 10 MG TAB PO SCH (20:43)
[2021-09-12] MEDS: DULoxetine 30 MG CAP PO SCH (20:43)
[2021-09-13] MEDS: Heparin 5,000 UNITS/ML VIAL SC SCH ×2 (06:41→13:29)
[2021-09-13] MEDS: glipiZIDE 5 MG TAB PO SCH (08:25)
[2021-09-13] MEDS: Polyethylene Glycol 3350 17 GM Packet PO SCH (08:26)
[2021-09-13] MEDS: Docusate 100 MG CAP PO SCH (08:26)
[2021-09-13] MEDS: Amlodipine 5 MG TAB PO SCH (08:26)
[2021-09-13] MEDS: Aspirin 81 mg Enteric Coated Tablet PO SCH (08:26)
[2021-09-13] MEDS: Bisacodyl 10 MG SUPP PR SCH (08:27)
[2021-09-13 15:14] VITALS: TEMP 98.1
[2021-09-13 16:05] VITALS: BP 159/77
== END 2021-09-13 17:27 | disposition home or self-care (01) | DRG 698 ==
LOC: CSHERS 15:23 → CSHTELE 22:54
PROVIDERS: ADMIT Family Medicine; ATTEND Family Medicine
PROC: 5A1D70Z Performance of Urinary Filtration, Intermittent, Less than 6 Hours Per Day (ICD-10-PCS; principal; 2021-09-08)
DX: N31.9 Neuromuscular dysfunction of bladder, unspecified (principal); N18.6 End stage renal disease; J96.01 Acute respiratory failure with hypoxia; N39.0 Urinary tract infection, site not specified; J90 Pleural effusion, not elsewhere classified; I12.0 Hypertensive chronic kidney disease with stage 5 chronic kidney disease or end stage renal disease; J98.11 Atelectasis; E46 Unspecified protein-calorie malnutrition; Z68.1 Body mass index [BMI] 19.9 or less, adult; E87.1 Hypo-osmolality and hyponatremia; E87.70 Fluid overload, unspecified; K80.20 Calculus of gallbladder without cholecystitis without obstruction; K59.00 Constipation, unspecified; D25.9 Leiomyoma of uterus, unspecified; F32.A Depression, unspecified; R33.9 Retention of urine, unspecified; R79.89 Other specified abnormal findings of blood chemistry; E11.22 Type 2 diabetes mellitus with diabetic chronic kidney disease; D63.1 Anemia in chronic kidney disease; Z20.822 Contact with and (suspected) exposure to COVID-19; Z90.5 Acquired absence of kidney; Z79.82 Long term (current) use of aspirin; Z79.899 Other long term (current) drug therapy; Z99.2 Dependence on renal dialysis; Z83.3 Family history of diabetes mellitus; Z82.49 Family history of ischemic heart disease and other diseases of the circulatory system
CPT/HCPCS: 36415; 71045; 74018; 74176; 80048; 80053; 81001; 81003; 81015; 82550; 82553; 83605; 83735; 84484; 85014; 85018; 85025; 87040; 87086; 90935; 93005; 96374; 96375; G0257; J0696; J1644; J2270; J2405; J3370; J3490; Q0162; Q5105